=== PATIENT | female | born 1965 | race Hispanic/Latino ===

== ENCOUNTER 2020-11-11 10:33 | Emergency (ER) | payer MEDICARE ==
[~2020-11-11] VITALS: Ht 124.5 cm; Wt 46.3 kg
[2020-11-11 11:16] VITALS: BP 138/86
[2020-11-11 11:29] LABS: BASOPHILS % (AUTO) 0.4 % (0.0-5.0); EOSINOPHILS % (AUTO) 0.5 % (0.0-8.0); HEMATOCRIT 39.8 % (36-48); LYMPHOCYTES % (AUTO) 23.6 % (21.0-51.0); MEAN CORPUSCULAR HEMOGLOBIN 29.6 pg (27.0-33.0); MEAN CORPUSCULAR HGB CONC 34.9 g/dL (32.0-36.0); MEAN CORPUSCULAR VOLUME 84.7 fL (79-99); MONOCYTES % (AUTO) 10.3 % (3.0-13.0); NEUTROPHILS % (AUTO) 64.8 % (40.0-77.0); PLATELET COUNT (AUTO) 302 K/uL (130-400); RED CELL DISTRIBUTION WIDTH 12.4 % (11.0-15.5)
[2020-11-11 11:38] LABS: CREATININE 0.6 mg/dL (0.5-1.5); POTASSIUM 4.1 mmol/L (3.5-5.1)
[2020-11-11 11:40] LABS: APPEARANCE,URINE Clear (CLEAR); BILIRUBIN,URINE Negative (NEGATIVE); COLOR,URINE Yellow (YELLOW); GLUCOSE, URINE (UA) Negative (NEGATIVE); KETONES,URINE Negative (NEGATIVE); LEUKOCYTE ESTERASE ,URINE Small (NEGATIVE); NITRATE,URINE Negative (NEGATIVE); OCCULT BLOOD,URINE Negative (NEGATIVE); PROTEIN,URINE Negative (NEGATIVE); UROBILINOGEN,URINE 0.2 mg/dL (0.2-1.0)
[2020-11-11 11:42] LABS: ALBUMIN 4.2 g/dL (3.5-5.0); BILIRUBIN,TOTAL 0.5 mg/dL (0.2-1.0); TOTAL PROTEIN, SERUM 7.8 g/dL (6.0-8.3)
[2020-11-11 11:51] LABS: BACTERIA,URINE Rare /HPF (None Seen); RBC,URINE 0-1 /HPF (0-1); SQUAMOUS EPITHELIAL CELL,UR Rare /HPF (0-2); WBC,URINE 0-1 /HPF (0-1)
[2020-11-11] MEDS ORDERED: METO200T49 PO (13:24)
[2020-11-11] MEDS ORDERED: BACL10TA PO (13:24)
[2020-11-11] MEDS ORDERED: LISI20TA24 PO (13:24)
[2020-11-11] MEDS ORDERED: ALPR-411 PO (13:24)
[2020-11-11] MEDS ORDERED: GABA-529 PO (13:24)
[2020-11-11] MEDS ORDERED: ASPI-1197 PO (13:24)
[2020-11-11] MEDS ORDERED: DILT-116 PO (13:24)
[2020-11-11] MEDS ORDERED: HYDR5TAB14 PO (13:24)
[2020-11-11 14:04] VITALS: BP 134/86
== END 2020-11-11 14:08 | disposition home or self-care (01) ==
LOC: EDH 10:33
DX: G80.9 Cerebral palsy, unspecified (principal); I10 Essential (primary) hypertension; Z98.890 Other specified postprocedural states; Z88.5 Allergy status to narcotic agent; Z79.82 Long term (current) use of aspirin; Z79.899 Other long term (current) drug therapy
CPT/HCPCS: 36415; 80053; 81001; 82550; 85025